=== PATIENT | male | born 1955 | race Caucasian/White ===

== ENCOUNTER 2022-04-12 09:53 | Inpatient (IN) | payer MEDICARE, OTHER ==
[~2022-04-12] VITALS: Ht 185.4 cm; Wt 96.6 kg
[~2022-04-12 09:53] MED LIST: CARBAMAZEPINE200 MG PO; DICYCLOMINE HCL20 MG PO; FLEXERIL10 MG PO; KLOR-CON M2020 MEQ PO; ZITHROMAX1 GM PO
[2022-04-12 11:00] LABS: HCT 38.3 % (42.0-52.0); HGB 12.5 g/dl (13.2-18.0); MCH 30.4 pg (25.0-31.0); MCHC 32.6 g/dL (32.0-36.0); MCV 93.2 fL (78.0-100.0); MPV 9.2 fL (6.0-9.5); RBC 4.11 M/uL (4.70-6.00); RDW 12.7 % (11.5-14.0); WBC 5.2 K/uL (4.0-10.5)
[2022-04-12 11:12] LABS: ALBUMIN 3.8 g/dL (3.4-5.0); BILIRUBIN - TOTAL 0.5 mg/dL (0.2-1.0); BUN/CREAT RATIO (CALC) 21.6 RATIO; CREATININE 1.11 mg/dL (0.67-1.17); GLOBULIN (CALCULATION) 3.7 g/dL; POTASSIUM 3.5 mmol/L (3.5-5.1); TOTAL PROTEIN 7.5 g/dL (6.4-8.2)
[2022-04-13 06:38] LABS: HCT 36.4 % (42.0-52.0); HGB 11.8 g/dl (13.2-18.0); MCH 30.7 pg (25.0-31.0); MCHC 32.4 g/dL (32.0-36.0); MCV 94.8 fL (78.0-100.0); RBC 3.84 M/uL (4.70-6.00); RDW 12.9 % (11.5-14.0); WBC 8.8 K/uL (4.0-10.5)
[2022-04-13 06:56] LABS: BUN/CREAT RATIO (CALC) 18.4 RATIO; CREATININE 1.41 mg/dL (0.67-1.17); POTASSIUM 3.9 mmol/L (3.5-5.1)
[2022-04-13 07:02] LABS: IRON % SATURATION 11.5 %SAT (20-50)
[2022-04-15 06:13] LABS: HCT 29.6 % (42.0-52.0); HGB 9.9 g/dl (13.2-18.0); MCH 31.3 pg (25.0-31.0); MCHC 33.4 g/dL (32.0-36.0); MCV 93.7 fL (78.0-100.0); MPV 9.4 fL (6.0-9.5); RBC 3.16 M/uL (4.70-6.00); RDW 12.5 % (11.5-14.0)
[2022-04-15 06:36] LABS: CREATININE 1.21 mg/dL (0.67-1.17); POTASSIUM 3.1 mmol/L (3.5-5.1)
[2022-04-16 06:30] LABS: HGB 10.5 g/dL (13.2-18.0)
[2022-04-16] MEDS ORDERED: DAILY PROBIOTI250 MG PO (10:15)
[2022-04-16] MEDS ORDERED: SENOKOT8.6 MG PO (10:15)
[2022-04-16] MEDS ORDERED: AUGMENTIN 500-1 EACH PO (10:15)
[2022-04-16] MEDS ORDERED: NORCO 5-325 TA1 EACH PO (10:15)
[2022-04-16] MEDS ORDERED: OMEPRAZOLE40 MG PO (12:23)
[2022-04-16] MEDS ORDERED: ONDANSETRON ODT8 MG PO (12:23)
[2022-04-17 06:33] LABS: HCT 32.2 % (42.0-52.0); HGB 10.8 g/dl (13.2-18.0); MCH 31.2 pg (25.0-31.0); MCHC 33.5 g/dL (32.0-36.0); MCV 93.1 fL (78.0-100.0); MPV 9.7 fL (6.0-9.5); RBC 3.46 M/uL (4.70-6.00); RDW 12.8 % (11.5-14.0); WBC 3.4 K/uL (4.0-10.5)
[2022-04-17 07:16] LABS: BUN/CREAT RATIO (CALC) 15.3 RATIO; CREATININE 1.11 mg/dL (0.67-1.17); POTASSIUM 2.8 mmol/L (3.5-5.1)
[2022-04-18 06:44] LABS: BASOPHIL 0.9 % (0-2); EOSINOPHIL 7.4 % (0-7); HCT 31.6 % (42.0-52.0); HGB 10.3 g/dl (13.2-18.0); LYMPHOCYTE 22.2 % (15-48); MCH 30.5 pg (25.0-31.0); MCHC 32.6 g/dL (32.0-36.0); MCV 93.5 fL (78.0-100.0); MONOCYTE 6.5 % (0-12); NEUTROPHIL 62.8 % (41-80); NRBC 0; PLT 187 K/uL (150-400); RBC 3.38 M/uL (4.70-6.00); RDW 12.8 % (11.5-14.0); WBC 4.3 K/uL (4.0-10.5)
[2022-04-18 08:26] LABS: BUN/CREAT RATIO (CALC) 15.5 RATIO; CREATININE 1.1 mg/dL (0.67-1.17); MAGNESIUM 2.2 mg/dL (1.8-2.4); POTASSIUM 2.8 mmol/L (3.5-5.1)
--- NOTE | 2022-04-19 05:44 | NUR ---
5:30 AM PATIENT AWAKE, CONSENT FOR COLONOSCOPY READ, EXPLAINED AND WITNESSED. ORIGINAL PLACED ON PATIENT'S CHART.
--- NOTE | 2022-04-19 10:00 | NUR ---
ASSISTING WITH PREPARING PAPERWORK FOR COLONOSCOPY NOTED K+ 2.8, INFORMED DR LO WHO STATED HE WILL ORDER SOME POTASSIUM
[2022-04-20 07:36] LABS: BASOPHIL 0.8 % (0-2); EOSINOPHIL 7.4 % (0-7); HCT 31.9 % (42.0-52.0); HGB 10.5 g/dl (13.2-18.0); LYMPHOCYTE 17.9 % (15-48); MCH 30.4 pg (25.0-31.0); MCHC 32.9 g/dL (32.0-36.0); MCV 92.5 fL (78.0-100.0); MPV 9.1 fL (6.0-9.5); NEUTROPHIL 66.7 % (41-80); NRBC 0; PLT 222 K/uL (150-400); RBC 3.45 M/uL (4.70-6.00); RDW 12.7 % (11.5-14.0); WBC 4.9 K/uL (4.0-10.5)
[2022-04-20 07:49] LABS: BUN/CREAT RATIO (CALC) 12.1 RATIO; CREATININE 0.99 mg/dL (0.67-1.17); MAGNESIUM 2.2 mg/dL (1.8-2.4); POTASSIUM 3.6 mmol/L (3.5-5.1)
--- NOTE | 2022-04-20 12:57 | NUR ---
SPOKE TO PATIENT AGAIN; HE DECLINES NEED FOR HOME HEALTH AT THIS TIME. HE SAID HE WOULD ASK (AVEL ) HIS NURSE PRACTIONER TO ORDRE FOR HIM BUT RIGHT NOW DECLINES IT
[2022-04-20] MEDS ORDERED: NORVASC5 MG PO ×2 (17:31→17:41)
== END 2022-04-20 18:09 | disposition home or self-care (01) | DRG 330 ==
LOC: FAS 09:53 → FMS 12:35
PROVIDERS: Family Medicine; Surgery; ADMIT Internal Medicine
PROC: BF131ZZ Fluoroscopy of Gallbladder and Bile Ducts using Low Osmolar Contrast (ICD-10-PCS; 2022-04-12)
PROC: 0DQE0ZZ Repair Large Intestine, Open Approach (ICD-10-PCS; 2022-04-12)
PROC: 0DNU0ZZ Release Omentum, Open Approach (ICD-10-PCS; principal; 2022-04-12 11:15)
PROC: 0FT44ZZ Resection of Gallbladder, Percutaneous Endoscopic Approach (ICD-10-PCS; 2022-04-12 11:15)
PROC: 05HY33Z Insertion of Infusion Device into Upper Vein, Percutaneous Approach (ICD-10-PCS; 2022-04-17)
PROC: 0D9L8ZZ Drainage of Transverse Colon, Via Natural or Artificial Opening Endoscopic (ICD-10-PCS; 2022-04-19)
DX: K91.89 Other postprocedural complications and disorders of digestive system (principal); D62 Acute posthemorrhagic anemia; K59.39 Other megacolon; K91.71 Accidental puncture and laceration of a digestive system organ or structure during a digestive system procedure; K56.7 Ileus, unspecified; K81.9 Cholecystitis, unspecified; K59.81 Ogilvie syndrome; K66.0 Peritoneal adhesions (postprocedural) (postinfection); I12.9 Hypertensive chronic kidney disease with stage 1 through stage 4 chronic kidney disease, or unspecified chronic kidney disease; N18.2 Chronic kidney disease, stage 2 (mild); G40.909 Epilepsy, unspecified, not intractable, without status epilepticus; E87.6 Hypokalemia; D50.9 Iron deficiency anemia, unspecified; Z79.899 Other long term (current) drug therapy
CPT/HCPCS: 36415; 74019; 74300; 80048; 80053; 82607; 83540; 83550; 83735; 85018; 85025; 93005; 94010; 97110; 97116; 97162; 97166; 97530; 97535; G0378; J0694; J1170; J1650; J1885; J2250; J2543; J2704; J2710; J2916; J3010; J3480; J7030; J7120; Q9967